=== PATIENT | male | born 1965 | race Caucasian/White ===

== ENCOUNTER 2020-10-02 10:58 | Emergency (ER) | payer BC, SELFPAY ==
--- NOTE | ~2020-10-02 | XR_ITS ---
EXAMINATION: XR abdomen obstructive series DATE: 10/02/2020 12:31 INDICATION: Left flank and lateral abdominal TECHNIQUE: Supine and upright views of the abdomen. FINDINGS: No prior studies for comparison. The visualized lung parenchyma is normal.. There is a nonobstructive bowel gas pattern. Gas and stool are seen throughout the colon to the level of the rectum. There is no free air. There is right tota l hip arthroplasty. Mild scoliosis. IMPRESSION: 1. No acute abdominal abnormality. Reviewed, dictated and finalized at location B.
[2020-10-02 11:07] VITALS: BP 118/62; PULSE 83; RESP 18; TEMP 36.3; O2SAT 100
--- NOTE | 2020-10-02 11:26 | ED.GENADULT ---
HPI - General Adult General Chief complaint: Abdominal Pain Stated complaint: Lt side pain Time Seen by Provider: 10/02/20 11:14 Source: patient and RN notes reviewed Mode of arrival: ambulatory Limitations: no limitations History of Present Illness HPI narrative: Patient presents today complaining of left lower quadrant and left flank pain since 10:00 this morning. Reports the pain started in the left lower quadrant and lateral abdomen and has now spread to the left flank. Denies dysuria or hematuria. The pain started this morning he did have some nausea, but this is mostly resolved. Pain waxes and wanes. He had a normal bowel movement this morning without blood or mucus. Denies constipation. Currently rates his pain 5/10 and has tried no akny-dhe-[id number] treatment prior to arrival. No history of kidney stones or pyelonephritis. MD complaint: Left flank and left lower quadrant pain Related Data Home Medications Medication Instructions Recorded Confirmed lisinopril 10 mg PO DAILY 10/02/20 10/02/20 Allergies Allergy/AdvReac Type Severity Reaction Status Date / Time No Known Allergies Allergy Mild Verified 10/02/20 11:02 Review of Systems Review of Systems: Narrative: CONSTITUTIONAL: Denies body aches, fever, chills, or sweats. EYES: Denies visual changes, redness, or discharge. ENT: Denies rhinorrhea, congestion, sore throat, or otalgia. CARDIOVASCULAR: Denies chest pain, palpitations, or edema. RESPIRATORY: Denies cough or dyspnea. GASTROINTESTINAL: Denies vomiting, or diarrhea.+ Left lower quadrant and left flank pain GENITOURINARY: Denies dysuria or hematuria. SKIN: Denies rash, itching, or wounds. MUSCULOSKELETAL: Denies back pain, joint pain, or myalgia. NEUROLOGIC: Denies headache, numbness, tingling, or weakness. PSYCH: Denies depression or anxiety. [facility] Past Medical History Medical History (Updated 10/02/20 @ 12:54 by Ashia Benedict, OB/GYN DOCTOR, ) Hypertension Social History Social History Smoking status: Never smoker Alcohol intake: current Gender identity (if verbalized by the patient): Male Comments At time of signature, I have reviewed and agree with nursing past medical, surgical, social and family history unless otherwise noted. Please see nursing chart for further information. There is no relevant family history pertinent to the presenting complaint Exam Narrative: Exam Narrative: GENERAL: Well-appearing, well-nourished, and in no acute distress. HEAD: Normocephalic, atraumatic. EYES: EOMI. No redness or drainage. Conjunctivae normal. ENT: Mucous membranes pink and moist. NECK: Normal AROM. CHEST: No respiratory distress. Clear to auscultation. HEART: Regular rate and rhythm. No murmur appreciated. Normal peripheral pulses. ABDOMEN: Soft, nondistended, normal active bowel sounds. Mild left lateral abdominal tenderness. Mild left CVAT MUSCULOSKELETAL: No bony tenderness. EXTREMITIES: Normal range of motion. No edema. SKIN: Warm, dry, no rash. Capillary refill normal. Normal skin turgor. NEURO: No focal deficits. Alert and oriented x3. Gait steady. PSYCH: Normal affect. No signs of depression or anxiety. Course Course Emergency Course: 1210- Pain resolved completely after Toradol injection. Discussed UA results. Xray ordered. Patient continues to have no pain after xray results come back. Discussed options. He would like to go home and monitor for any symptoms to return instead of going to the ER at this time. Anticipatory guidance given. Vital Signs Vital signs: Vital Signs Temperature 97.3 F L 10/02/20 11:07 Pulse Rate 83 10/02/20 11:07 Respiratory Rate 18 10/02/20 11:07 Blood Pressure 118/62 10/02/20 11:07 Pulse Oximetry 100 10/02/20 11:07 Temperature 97.3 F L 10/02/20 11:07 Pulse Rate 83 10/02/20 11:07 Respiratory Rate 18 10/02/20 11:07 Blood Pressure 118/62 10/02/20 11:07 Pulse Oximetry 100 10/02/20 11:07 Reviewed
[2020-10-02] MEDS: KETOROLAC (*BKC) 60 MG/2 ML VIAL IM (11:32)
== END 2020-10-02 12:57 | disposition home or self-care (01) ==
PROVIDERS: Emergency Provider Nurse Practitioner; PCP Family Medicine
DX: R10.9 Unspecified abdominal pain (principal); I10 Essential (primary) hypertension
CPT/HCPCS: 74019; 81003; 96372; 99213; G0463; J1885

== ENCOUNTER 2021-02-24 01:22 | Day surgery (SDC) | payer BC, SELFPAY ==
[2021-02-24 06:19] VITALS: BP 144/94; PULSE 116; RESP 18; TEMP 36.6; O2SAT 100
[2021-02-24] MEDS: LACTATED RINGERS 1,000 ML 150 ML IV CONT (06:30)
--- NOTE | 2021-02-24 07:16 | P.CONGI_ITS ---
Assessment and Plan Assessment and plan (1) History of colon polyps: Code(s): Z86.010 - Personal history of colonic polyps Status: Acute Assessment and Plan: Patient has a history of a small colon polyp in 2016. Plan is for colonoscopy at this time. Further recommendations will be given after endoscopy. GI Consult Note Consult date/time: 02/24/21 07:16 HPI: Matthew Aranda is a 55 year old male Presents for screening colonoscopy. Patient reports his current weight appetite and bowel movements are normal. Patient denies abdominal pain. He has had no bleeding. Family history noncontributory. Last colonoscopy in 2016 revealed this very small colon polyp. Review of Systems Review of Systems: All systems reviewed & are unremarkable except as noted in HPI and below PMFSH Past Medical History Medical History (Updated 02/24/21 @ 07:17 by Sami Wiggins MD) Hypertension Social History Social History Smoking status: Never smoker Alcohol intake: current Drinks per week: 6 Substance use: never Substance use type: does not use Living arrangements: with family Gender identity (if verbalized by the patient): Male Spiritual care concerns: No Meds Home Medications and Allergies Home Medications Medication Instructions Recorded Confirmed Type lisinopril 10 mg PO DAILY 10/02/20 02/09/21 History Allergies Allergy/AdvReac Type Severity Reaction Status Date / Time No Known Allergies Allergy Mild Verified 02/24/21 06:17 Vital Signs Vital Signs - 24 hr 02/24/21 06:19 Temperature 97.8 F Pulse Rate 116 H Respiratory Rate 18 Blood Pressure 144/94 H Pulse Oximetry 100 Exam Narrative: Physical exam reveals patient to be alert. Vital signs stable. HEENT exam is unremarkable. Patient is anicteric. Lungs are clear to auscultation and percussion. Heart is without murmur or extra sounds. Abdominal exam bowel sounds are present soft nontender with no hepatosplenomega ly. Digital external rectal exam is normal.
--- NOTE | 2021-02-24 07:19 | WPDANESEPPF ---
Anes - Initial Pre Proc Eval Procedure: Operation Date: 02/24/21 07:30 Proposed Procedures p Screening Colonoscopy - Sami Wiggins MD Date/Time: 02/24/21 07:19 Surgeon: Sami Wiggins MD Pre Op Diagnosis: hx of colon polyps, neoplasm screening Patient Data Age: 55 Gender: M Height: 1.91 m Weight: 105.7 kg Last Vital Signs Temp 97.8 F 02/24/21 06:19 Pulse 116 H 02/24/21 06:19 Resp 18 02/24/21 06:19 BP 144/94 H 02/24/21 06:19 Pulse Ox 100 02/24/21 06:19 Allergies Allergy/AdvReac Type Severity Reaction Status Date / Time No Known Allergies Allergy Mild Verified 02/24/21 06:17 Home Medications Medication Instructions Recorded Confirmed Type lisinopril 10 mg PO DAILY 10/02/20 02/09/21 History Patient hx anesthesia problems: none Family hx anesthesia problems: none Results Review: All pre-operative results and documents have been reviewed as part of the pre-operative evaluation. [facility] Past Medical History Medical History (Updated 02/24/21 @ 07:17 by Sami Wiggins MD) Hypertension Social History Social History Smoking status: Never smoker Alcohol intake: current Drinks per week: 6 Substance use: never Substance use type: does not use Living arrangements: with family Gender identity (if verbalized by the patient): Male Spiritual care concerns: No Anes - Eval Final PreProcedure Day of Procedure 02/24/21 07:19 Patient weight: obese Heart: regular rate and rhythm Lungs: clear to auscultation Airway: Mallampati scale class III Neurological: alert and oriented Last oral intake: >/= 8 hours ASA classification: II Emergent: no Anesthetic plan: proceed Anesthesia type and monitoring: general GIVS and standard monitoring Results Review: All pre-operative results and documents have been reviewed as part of the pre-operative evaluation. Informed Consent: The patient's anesthetic plan and its attendant risks and benefits were discussed with the patient/family/POA. Questions were solicited and answers provided to the satisfaction of the patient/family/POA.
[2021-02-24 07:44] VITALS: BP 109/72; PULSE 100; RESP 22; O2SAT 94
[2021-02-24 07:54] VITALS: BP 116/79; PULSE 94; RESP 24; O2SAT 97
[2021-02-24 08:04] VITALS: BP 114/86; PULSE 87; RESP 21; O2SAT 99
== END 2021-02-24 08:16 | disposition home or self-care (01) ==
PROVIDERS: PCP Family Medicine; Visit Provider Internal Medicine Gastroenterology
PROC: 0DJD8ZZ Inspection of Lower Intestinal Tract, Via Natural or Artificial Opening Endoscopic (ICD-10-PCS; CPT 45378; principal; 2021-02-24 07:30)
DX: Z12.11 Encounter for screening for malignant neoplasm of colon (principal); K64.8 Other hemorrhoids; I10 Essential (primary) hypertension; E66.9 Obesity, unspecified; Z68.29 Body mass index [BMI] 29.0-29.9, adult
CPT/HCPCS: 45378; J2704; J7120

== ENCOUNTER 2023-05-23 11:00 | Outpatient (CLI) | payer BC, SELFPAY ==
--- NOTE | ~2023-05-23 | XR_ITS ---
Thoracic spine: Clinical Indication: Back pain AP and lateral views were performed. No fracture is seen. There is normal alignment of the vertebrae. The intervertebral disc spaces appe ar normal. Paravertebral soft tissues appear normal. Impression: No significant abnormalities noted. Reviewed, dictated and finalized at [facility]. [employer] Impression: No significant abnormalities noted.
== END 2023-05-23 11:01 ==
LOC: MICIMG 11:01
PROVIDERS: PCP Physician Assistant; Visit Provider Physician Assistant
DX: M54.9 Dorsalgia, unspecified (principal)
CPT/HCPCS: 72072